=== PATIENT | male | born 2000 | race Caucasian/White ===

== ENCOUNTER 2021-07-01 21:44 | Emergency (ER) | payer SELFPAY ==
[2021-07-01] VITALS (7 sets, daily range): BP systolic 111–132; BP diastolic 62–74; PULSE 52–68; RESP 14–18; TEMP 36.6–36.8; O2SAT 96–100
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
--- NOTE | 2021-07-01 23:12 | PC.NURSE ---
pain only with movement.
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
--- NOTE | 2021-07-02 00:19 | PC.NURSE ---
Sling applied to right arm. Pt tolerated well.
== END 2021-07-02 00:23 | disposition home or self-care (01) ==
PROVIDERS: Emergency Provider Emergency Medicine
DX: S43.101A Unspecified dislocation of right acromioclavicular joint, initial encounter (principal); S00.81XA Abrasion of other part of head, initial encounter; V86.59XA Driver of other special all-terrain or other off-road motor vehicle injured in nontraffic accident, initial encounter
CPT/HCPCS: 73030; 99283; A4565